=== PATIENT | male | born 2000 | race American Indian/Alaskan Native ===

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

== ENCOUNTER 2021-02-15 18:33 | Emergency (ER) | payer OTHER ==
[~2021-02-15] VITALS: Ht 175.3 cm; Wt 49.9 kg
== END 2021-02-15 20:56 | disposition home or self-care (01) ==
LOC: ER 18:33 → EMR PED 18:37 → ER 18:37 → EMR PED 20:56
DX: F41.0 Panic disorder [episodic paroxysmal anxiety] (principal)

== ENCOUNTER 2021-04-11 08:00 | Outpatient (CLI) | payer OTHER | END 2021-04-11 08:30 | disposition home or self-care (01) | LOC: PPH VACUNA 08:00 | PROVIDERS: ATTEND Emergency Medicine Pediatric Emergency Medicine | DX: Z23 Encounter for immunization (principal) ==